=== PATIENT | male | born 1965 | race Two or more races ===

== ENCOUNTER 2025-06-11 06:12 | Emergency (ER) | payer OTHER ==
[~2025-06-11] VITALS: Ht 172.7 cm; Wt 85.3 kg
[2025-06-11] MEDS ORDERED: IRBESARTAN75 MG (06:26)
[2025-06-11] MEDS ORDERED: 0.9 % SODIUM CHLORIDE 1,000 ML IV ONE (07:45)
[2025-06-11] MEDS ORDERED: TAMSULOSIN HCL 0.4 MG CAP PO ONE (07:45)
[2025-06-11] MEDS ORDERED: CEFTRIAXONE SODIUM 1,000 MG VIAL IV ONE (07:45)
[2025-06-11] MEDS ORDERED: KETOROLAC TROMETHAMINE 30 MG VIAL IV ONE (07:45)
[2025-06-11] MEDS ORDERED: FAMOtidine 10 MG/ML (4ML VIAL) IV ONE (07:45)
[2025-06-11 09:29] LABS: BASO % 0.8 % (0.1-1.2); EOS # 0.10 (0.04-0.54); EOS % 1.5 % (0.7-7.0); LYMPH # 1.67 (1.18-3.74); LYMPH % 25.1 % (19.3-53.1); MEAN PLATELET VOLUME 10.80 fl (9.4-12.4); MONO # 0.40 (0.24-0.82); MONO % 6.0 % (4.7-12.5); NEUT # 4.41 (1.56-6.13); NEUT % 66.1 % (34.0-71.1); RED CELL DISTRIBUTION WIDTH 12.4 % (11.6-14.4)
[2025-06-11 09:48] LABS: URINE APPEARANCE Clear; URINE BILIRRUBIN Negative (NEGATIVE); URINE BLOOD Negative; URINE COLOR Yellow; URINE GLUCOSE Negative (NEGATIVE); URINE KETONE Negative (NEGATIVE); URINE LEUKOCYTE Negative; URINE NITRATE Negative; URINE PROTEIN Negative (NEGATIVE); URINE UROBILINOGEN 0.2 E.U./dl
[2025-06-11 09:54] LABS: ALT/SGPT 19.0 U/L (12-78); AST/SGOT 16.0 U/L (15-37); BILIRUBIN TOTAL 0.53 mg/dL (0.3-1.2); BUN CREA RATIO 14.0 (7.0-25.0); CREATININE SERUM 1.25 mg/dL (0.70-1.30); GFR 58.92; GLOBULINA 3.6 G/DL (2.4-3.5); GLUCOSE FASTING 77.0 mg/dL (65-100); OSMOLALITY SERUM 288.0 MOSM/KG (275-295)
[2025-06-11 09:58] LABS: URINE EPITHELIAL CELLS 3.6 uL (0.0-38.8); URINE RBC 2.7 uL (0.0-20.8); URINE WBC 3.5 uL (0.0-23.2)
[2025-06-11 09:59] LABS: INR 1.03
[2025-06-11 10:04] LABS: URINE BACTERIA 3.5 uL (0.0-1933); URINE CAST 0.43 uL (0.0-1.40)
[2025-06-11] MEDS ORDERED: NORFLEX100MG PO (10:41)
[2025-06-11] MEDS ORDERED: BACTRIM DS TAB1 EACH PO (10:41)
[2025-06-11] MEDS ORDERED: PEPCID AC20 MG PO (10:41)
[2025-06-11] MEDS ORDERED: TAMS0.4C PO (10:41)
== END 2025-06-11 11:16 | disposition home or self-care (01) ==
LOC: ER 06:13
PROVIDERS: General Practice
DX: N20.1 Calculus of ureter (principal); K57.30 Diverticulosis of large intestine without perforation or abscess without bleeding; K42.9 Umbilical hernia without obstruction or gangrene; K40.90 Unilateral inguinal hernia, without obstruction or gangrene, not specified as recurrent; I10 Essential (primary) hypertension